=== PATIENT | male | born 1975 | race Caucasian/White ===

== ENCOUNTER 2024-09-12 11:35 | Emergency (ER) | payer MEDICAID ==
[~2024-09-12] VITALS: Ht 167.6 cm; Wt 80.0 kg
[2024-09-12 11:36] VITALS: O2SAT 99
[2024-09-12 11:37] VITALS: BP 146/90; PULSE 75; RESP 18; TEMP 98.7; O2SAT 98
[2024-09-12] MEDS: IBUPROFEN 800MG TABLET PO ONE (12:43)
[2024-09-12] MEDS ORDERED: CYCL10TA21 MT (12:47)
[2024-09-12] MEDS ORDERED: IBUP-2030 MT (12:47)
== END 2024-09-12 13:00 | disposition home or self-care (01) ==
LOC: ER 11:35
DX: J06.9 Acute upper respiratory infection, unspecified (principal); M54.9 Dorsalgia, unspecified; Z20.822 Contact with and (suspected) exposure to COVID-19
CPT/HCPCS: 71045; 87426; 99284